=== PATIENT | male | born 1975 | race Caucasian/White ===

== ENCOUNTER → 2024-06-24 07:37 | Outpatient (REF) | payer BC, SELFPAY | LOC: RAD 07:37 | PROVIDERS: ATTENDING PHYSICIAN Nurse Practitioner Family | DX: M79.671 Pain in right foot (principal) | CPT/HCPCS: 73630 ==

== ENCOUNTER → 2024-08-19 10:55 | Outpatient (REF) | payer SELFPAY | LOC: HWRAD 10:55 | PROVIDERS: ATTENDING PHYSICIAN Nurse Practitioner Family | DX: E10.9 Type 1 diabetes mellitus without complications (principal); E78.2 Mixed hyperlipidemia | CPT/HCPCS: 75571 ==